=== PATIENT | female | born 1955 | race African-American/Black ===

== ENCOUNTER 2023-07-13 15:40 | Emergency (ER) | payer MEDICARE, MEDICAID ==
[~2023-07-13] VITALS: Ht 170.2 cm; Wt 86.2 kg
[2023-07-13 16:15] VITALS: TEMP 98.4; O2SAT 99
[2023-07-13 20:09] LABS: BASOPHILS % 0.5 % (0.0-2.0); DIFFERENTIAL COMMENT 0; EOSINOPHILS % 1.2 % (0.0-5.0); HEMATOCRIT. 40.6 % (36.0-48.0); LYMPHOCYTES % 31.1 % (20.0-50.0); MEAN CORPUSCULAR HEMOGLOBIN 25.4 pg (28.0-32.0); MEAN CORPUSCULAR VOLUME 79.3 fL (81.0-99.0); MEAN PLATELET VOLUME 10.3 fl (7.4-10.4); MONOCYTES % 7.6 % (2.0-8.0); NEUTROPHILS % 59.6 % (40.0-76.0); PLATELET 259 x1000/uL (130-400); RED BLOOD CELL COUNT 5.12 mill/uL (4.2-5.4); RED CELL DISTRIBUTION WIDTH 15.8 % (11.6-14.6)
[2023-07-13 20:25] LABS: ALANINE AMINOTRANSFERASE 17 IU/L (10-49); ALBUMIN 4.1 g/dL (3.2-4.8); ASPARTATE AMINOTRANSFERASE 20 IU/L (<34); BILIRUBIN TOTAL 0.3 mg/dL (0.1-1.0); CARBON DIOXIDE 24 mEq/L (21-32); CHLORIDE 110 mEq/L (98-107); GLUCOSE 99 mg/dL (70-105); POTASSIUM 3.5 mEq/L (3.5-5.1); PROTEIN TOTAL 7.4 g/dL (6.0-8.3); SODIUM 141 mEq/L (136-145); UREA NITROGEN BLOOD 27 mg/dL (9-23)
[2023-07-13] MEDS: IBUPROFEN 600MG TABLET PO STA (21:31)
[2023-07-13] MEDS ORDERED: GABA-532 MT (22:10)
[2023-07-13] MEDS ORDERED: NAPR500T7 PO (22:10)
[2023-07-13] MEDS: ACETAMINOPHEN 325MG TABLET PO STA (22:22)
[2023-07-13 22:26] VITALS: BP 140/93; PULSE 81; RESP 16
== END 2023-07-13 22:53 | disposition home or self-care (01) ==
LOC: ER 15:40
DX: M25.561 Pain in right knee (principal); G89.29 Other chronic pain; Z86.73 Personal history of transient ischemic attack (TIA), and cerebral infarction without residual deficits; I25.2 Old myocardial infarction; I10 Essential (primary) hypertension
CPT/HCPCS: 36415; 73562; 73590; 80053; 85025; 93970; 99284